=== PATIENT | female | born 1955 | race Caucasian/White ===

== ENCOUNTER 2024-02-18 10:36 | Outpatient (OUT) | payer MEDICARE, SELFPAY ==
--- NOTE | 2024-02-18 10:41 | US_ITS ---
The [address] [address] Patient Name: MELISSA ALLEN MRN: [id number] date: 1955 Sex: F Assigned Patient Location: US Current Patient Location: Accession/Order Number: [id number] Exam Date: 02/18/2024 10:42 Report Date: 02/19/2024 10:31 At the request of: VIN BLOOM Procedure: US thyroid EXAMINATION: US thyroid HISTORY: Unspecified Hyperthyroid COMPARISON: No relevant comparison available. FINDINGS: RIGHT LOBE: Small, heterogeneous lobe. No appreciable nodules or significant colloid cysts. Lobe size: 3.1 x 1.0 x 0.7 cm LEFT LOBE: Small, heterogeneous lobe. No appreciable nodules or significant colloid cysts. Lobe size: 1.9 x 0.6 x 0.5 cm ISTHMUS: Slightly thickened and heterogeneous. Thickness: 6 mm US/US thyroid IMPRESSION: 1. Small slightly heterogeneous thyroid gland; nonspecific. 2. No nodules, hypervascularity, or suspicious findings. Electronically authenticated by: JADE SCHAEFER Date: 02/19/2024 10:31
== END 2024-02-18 10:37 | disposition home or self-care (01) ==
LOC: US 10:36
PROVIDERS: Visit Provider Internal Medicine
DX: E03.9 Hypothyroidism, unspecified (principal); E55.9 Vitamin D deficiency, unspecified
CPT/HCPCS: 76536